=== PATIENT | female | born 1945 | race Caucasian/White ===

== ENCOUNTER → 2019-01-18 | Outpatient (CLI) | payer OTHER | LOC: FIMAGING 09:37 | PROVIDERS: ATTEND Family Medicine | DX: Z13.820 Encounter for screening for osteoporosis (principal); Z85.89 Personal history of malignant neoplasm of other organs and systems; Z78.0 Asymptomatic menopausal state; Z85.3 Personal history of malignant neoplasm of breast ==

== ENCOUNTER 2019-02-23 12:09 | Inpatient (IN) | payer OTHER ==
[2019-02-23] MEDS ORDERED: NS 500 ML IV ONE (12:43)
[2019-02-23] MEDS ORDERED: ONDANSETRON 4 MG/2 ML VIAL IVP ONE (12:43)
--- NOTE | 2019-02-23 12:51 | EDPHY ---
H & P Time Seen by Provider: 02/23/19 12:31 HPI/ROS: HPI Constipation. 73-year-old female by private vehicle. This patient reports that she has been dealing with constipation for the last 5 weeks. She describes this is infrequent bowel movements every 3-4 days, small in nature and only weaned induced with medications such as senna and docusate sodium or fiber supplements. She reports that she just returned from an 8 a trip to [place] where she visited her grand some for his high school graduation. She had issues with constipation accompanied by mid and upper abdominal cramping and bloating. She was seen at an urgent care in the [facility] area. She was given magnesium citrate had a bowel movement after taking this and felt better. She comes into the emergency department today stating that she is concerned about her ongoing constipation. She again had cramping and bloating involving the mid and upper abdomen this morning. She did take a fiber supplement last night at 6:00 p.m. And again at 5:30 a.m. This morning. She produced a soft bowel movement this morning but states that it was small and is concerned that it was not that substantial. She does have a follow-up appointment with gastroenterology for this problem which was arranged through her primary care physician scheduled for March 13. She has not been vomiting. Her last meal was last night on the plane ride home. She did have some coffee this morning. She is asking to be evaluated and worked up in the emergency department. She is concerned about a possible obstructive process. ROS: Constitutional: No fever, no chills. No weakness. Eyes: No discharge. No changes in vision. ENT: No sore throat. No nasal congestion or rhinorrhea. Respiratory: No cough. No shortness of breath. Cardiac: No chest pain, no palpitations. Gastrointestinal: As above, no vomiting, no diarrhea. Genitourinary: No hematuria. No dysuria or increased frequency with urination. Musculoskeletal: No back pain. No neck pain. No myalgias or arthralgias. Skin: No rashes. Neurological: No headache. No focal weakness or altered sensation. Past medical history: Breast cancer with bilateral mastectomy. Cancer free since 2008. Social history: She is currently here by herself. No alcohol. Nonsmoker. Physical Exam: General Appearance: Alert, she is not in distress but is mildly anxious. This patient is responding to questions appropriately and in full sentences. This patient appears well-hydrated and well-nourished. Eyes: Pupils equal and round no pallor or injection. No lid edema, erythema or injection. Respiratory: There are no retractions, lungs are clear to auscultation with good air movement bilaterally. Cardiovascular: Regular rate and rhythm. No murmur. Gastrointestinal: Abdomen is soft with mild and vague tenderness on palpation of the upper and mid abdomen, no masses, bowel sounds normal. No focal tenderness at McBurney's point. No Mosquera sign. Neurological: Motor sensory function is grossly intact. Cranial nerves are normal. Gait is normal. Skin: Warm and dry, no rashes. Musculoskeletal: Neck is supple and nontender. No CVA tenderness bilaterally. Extremities are symmetrical. All joints range without pain or impingement. Psychiatric: No agitation. No depression. Database: EKG: EKG time is 2:12 p.m.; EKG shows a narrow complex normal sinus rhythm with a ventricular rate of 72. The DC, QRS, QT intervals are within normal limits. Borderline ST elevation noted in the anterior leads. Left axis deviation noted. No evidence of right heart strain. This EKG was compared to a prior EKG from March of 2015 which showed similar tall borderline peaked T-waves and borderline ST elevation in the anterior leads. Interpreted by me. Imaging: CT abdomen and pelvis with IV contrast: Significant for a 3.5 cm pancreatic mass indicative of pancreatic malignancy. There is associated atrophy of the pancreatic tail and some edema noted. There is thrombosis of the splenic vein. Constipation noted. No metastasis seen. Results were discussed with staff radiologist Dr. Juan Luis Ray. Procedures: Emergency department course: Triage vital signs reviewed. She is mildly hypertensive. Vital signs are otherwise within normal limits. She is afebrile. IV will be placed. She will be started on IV normal saline with 500 cc to be given over the next hour. Blood work will be obtained. CT abdomen and pelvis with IV contrast will be obtained as well pending a normal creatinine. The patient endorses workup. 2:05 p.m., the patient was re-evaluated, she was sleeping comfortably but easily arousable. We are still awaiting the results of her CT scan. I discussed the results of her blood work and her urinalysis which are reassuring. She then described to me that she has had some intermittent lower chest discomfort in concert with her upper abdominal cramping. She reports that this has been ongoing for a number of weeks with her abdominal discomfort as described above in her HPI. An EKG and a troponin will be checked. She denies any chest pain or shortness of breath at this time. 2:15 p.m., discussed CT results and diagnosis with the patient and her who is now at the bedside. This was then followed up by a call in discussion with on-call general surgeon Dr. Kory Delcid. He viewed the CT scan from [facility]. At this time he feels there is nothing emergent and that her workup would not be enhanced by admission to the hospital. He recommended that we start the patient on Lovenox for the splenic vein thrombosis and he will see the patient in his office on Wednesday for re-evaluation , arrangement of an endoscopic ultrasound-guided biopsy by interventional radiologist Dr. Andrews followed by consultation with Oncology. Oncology, Dr. Carolina moss. The patient's troponin was elevated. I spoke with Dr. Dr. Elliott, hospitalist on-call at 2:50 p.m.. The case was discussed in detail with him. He accepts this patient for transfer and admission to the PCU. He will arrange for cardiology consultation, oncology consultation and endoscopic biopsy by Dr. Andrews. I also explained to Dr. Elliott that I had briefed Dr. Kory Delcid regarding this patient's condition. 3:20 p.m., the patient was given 60 mg of subcutaneous Lovenox as well as 324 mg of chewed aspirin. Results of her emergency department workup, my conversations with general surgery and hospitalist as well as her preliminary care plan was discussed in detail with her and her . All of their questions were answered. I discussed transport by ambulance. She does not want to do this. She and her are requesting to go by private vehicle. In my professional opinion she and her understand the risks of being transported by private vehicle. They again declined ambulance transport. I have filled out the appropriate transfer paperwork. Her vital signs have remained stable throughout her emergency department course. She has not had any chest pain. She was transferred by private vehicle with her in stable condition. Differential Diagnosis: The differential diagnosis on this patient includes but is not limited to constipation, ileus, partial bowel obstruction, biliary colic, elevated troponin. Appendicitis, volvulus unlikely. This represents a partial list of diagnoses considered. These considerations are based on history, physical exam , past history, reassessment and diagnostic testing. Smoking Status: Former smoker Constitutional: Initial Vital Signs Temperature (C) 36.6 C 02/23/19 12:36 Heart Rate 98 02/23/19 12:36 Respiratory Rate 16 02/23/19 12:36 Blood Pressure 156/96 H 02/23/19 12:36 O2 Sat (%) 95 02/23/19 12:36 O2 Delivery Mode Room Air Allergies/Adverse Reactions: docetaxel [From Taxotere] Allergy (Verified 02/23/19 12:36) Sulfa (Sulfonamide Antibiotics) Allergy (Verified 02/23/19 12:36) Home Medications: Medication Instructions Recorded Atorvastatin Calcium [Lipitor] 10 mg PO DAILY 04/01/15 Medical Decision Making - Diagnostics Imaging Results: Imaging Impressions Abdomen CT 02/23/19 13:13 Impression: 1. 3.1 cm pancreatic mass consistent with malignancy, with occlusion of the splenic vein peripheral to the mass, with continuity of the mass with the splenic artery. 2. Stranding adjacent to the mass suggesting regional extension, with no definite evidence of distant metastases. 3. Constipation. 4. Congenital anomaly of the celiac artery, with discrete origin of the hepatic artery, as above. 5. Degenerative change in the spine, with grade 1 anterolisthesis of L3 on L4 and severe spinal canal narrowing at L3-L4. 6. Additional findings, as above. Findings discussed with Ev Arredondo M.D., on February 23, 2019 at 1414. - Data Points Laboratory Results: 02/23/19 02/23/19 14:13 12:55 POC Sodium 146 mEq/L H mEq/L (135-145) POC Potassium 4.9 mEq/L mEq/L (3.3-5.0) POC Chloride 105.0 mEq/L mEq/L (97-110) POC Total CO2 28 mEq/L mEq/L (22-31) POC BUN 12 mg/dL mg/dL (7-23) POC Creatinine 0.9 mg/dL mg/dL (0.6-1.0) POC Glucose 102 mg/dL H mg/dL (70-100) POC Calcium 10.1 mg/dL mg/dL (8.5-10.4) POC Total Bilirubin 1.0 mg/dL mg/dL (0.1-1.4) POC AST 37 IU/L IU/L (14-46) POC ALT 27 IU/L IU/L (9-52) POC Alk Phosphatase 48 IU/L IU/L (38-126) POC Troponin I 0.26 ng/mL H ng/mL (0.00-0.08) POC Total Protein 7.0 g/dL g/dL (6.3-8.2) POC Albumin 4.2 g/dL g/dL (3.5-5.0) Medications Given: Discontinued Medications Enoxaparin Sodium (Lovenox) 60 mg SC EDNOW ONE Stop: 02/23/19 14:52 Last Admin: 02/23/19 15:11 Dose: 60 mg Sodium Chloride (Ns) 500 mls @ 0 mls/hr IV EDNOW ONE; Wide Open PRN Reason: Protocol Stop: 02/23/19 12:44 Last Admin: 02/23/19 12:51 Dose: 500 mls Ondansetron HCl (Zofran) 4 mg IVP EDNOW ONE Stop: 02/23/19 12:44 Last Admin: 02/23/19 12:51 Dose: 4 mg Point of Care Test Results: CBC CBC Collection Date 02/23/19 CBC Collection Time 12:50 WBC 4.90 RBC 5.00 HGB 14.9 HCT 44.3 PLT 259 Neut # 3.06 Neut 62.5 LYMPH # 1.09 LYMPH 22.2 MCV 88.6 Chemistry 02/23/19 02/23/19 14:13 12:55 POC Sodium 146 mEq/L H mEq/L (135-145) POC Potassium 4.9 mEq/L mEq/L (3.3-5.0) POC Chloride 105.0 mEq/L mEq/L (97-110) POC Total CO2 28 mEq/L mEq/L (22-31) POC BUN 12 mg/dL mg/dL (7-23) POC Creatinine 0.9 mg/dL mg/dL (0.6-1.0) POC Glucose 102 mg/dL H mg/dL (70-100) POC Calcium 10.1 mg/dL mg/dL (8.5-10.4) POC Total Bilirubin 1.0 mg/dL mg/dL (0.1-1.4) POC AST 37 IU/L IU/L (14-46) POC ALT 27 IU/L IU/L (9-52) POC Alk Phosphatase 48 IU/L IU/L (38-126) POC Troponin I 0.26 ng/mL H ng/mL (0.00-0.08) POC Total Protein 7.0 g/dL g/dL (6.3-8.2) POC Albumin 4.2 g/dL g/dL (3.5-5.0) Urine Dip Collection Date 02/23/19 Collection Time 13:40 Specific [place] (1.002-1.030) 1.010 PH (5.0-7.5) 7.5 Leukocytes (Negative) Negative Nitrites (Negative) Negative Protein (Negative) Negative Glucose (Negative) Negative Ketones (Negative) Negative Urobilnogen (0.2-1.0 EU) 0.2 Bilirubin (Negative) Negative Blood (Negative) Negative Departure - Departure Disposition: [facility] Acute Clinical Impression: Pancreatic mass, Elevated troponin
[2019-02-23] MEDS ORDERED: IOPAMIDOL (ISOVUE-300) 100 ML BTL ONE (13:17)
[2019-02-23] MEDS ORDERED: ENOXAPARIN 60 MG/0.6 ML SYR SC ONE (14:51)
[2019-02-23] MEDS ORDERED: ASPIRIN 325 MG TAB PO ONE (15:15)
[2019-02-23] MEDS ORDERED: ACETAMINOPHEN 325 MG TAB PO PRN (17:35)
[2019-02-23] MEDS ORDERED: ZOLPIDEM TARTRATE 5 MG TAB PO PRN (17:35)
[2019-02-23] MEDS ORDERED: ONDANSETRON 4 MG/2 ML VIAL IVP PRN (17:35)
[2019-02-23] MEDS: NITROGLYCERIN 0.4 MG BTL SL PRN ×3 (18:21→19:18)
[2019-02-23 18:51] LABS: CREATINE KINASE 103 IU/L (0-156)
[2019-02-23] MEDS ORDERED: MAGNESIUM HYDROXIDE 30 ML UDCUP PO PRN (18:51)
[2019-02-23] MEDS ORDERED: BISACODYL 10 MG SUPP PR PRN (18:51)
--- NOTE | 2019-02-23 19:09 | PDGENHP ---
History and Physical History and Physical: CC:chest pain and abd pain with constipation HISTORY: This patient comes in with chest pain complaint but has multiple symptoms and findings jodee to each Chest pain - this is a Left low anterior pressure (no associated sxs) that has occured over 6 weeks, gradually getting more severe and persistant. She has trouble recalling timing, but states nearly continuously present for past 8 days though waxes and wanes and her awareness of it varies. Is aggravated by lying down and better standing but is all pressure, no sharp, and no pleuritic component. No sob or cough or fever. ? if worse w eating at times but see gi sx's below. She had an episode of chest pain for 2 hours in 2014 seen at [facility] [place] w one nl troponin, and abnormal ekg w ST segment elevation but no stress test or echo or angio done then. She declined admission so did not have complete eval. She recalls chest pressure but the urg care MD note states pleuritic pain A CT chest in 2015 noted Coronary Atherosclerosis Risk factors: Former smoker Age new line hypercholesterolemia Abdominal pain and constipation - she complains of 2 or more months of significant constipation requiring frequent use of laxatives and fiber. This is a completely new symptom for her. This is associated with some epigastric discomfort which is aggravated by eating. No nausea or vomiting, no weight loss no fevers no melanic stools new line ROS: A comprehensive 10 system review revealed no other significant findings PAST MEDICAL HISTORY: Breast cancer Lung nodule and hilar adenopathy, apparently had lymph node biopsy negative for malignancy (2015) Hyperlipidemia Breast cancer Osteoporosis FAMILY MEDICAL HISTORY: Breast cancer SOCIAL HISTORY: Former smoker MEDICATIONS: The patients list has been reconciled by our clinical pharmacist in the EMR. I have reviewed the list and ordered appropriate medicines. PHYSICAL EXAMINATION: Vital Signs: Normal without fever Winchman/Crane Operator: Sinus Examination: General: alert, oriented, good mentation, patient looks anxious and uncomfortable and is sitting on the side of bed continually massaging her right lower anterior rib cage Skin: warm, dry, good color, no rash HEENT: normal Neck: no mass or jvd Resps: relaxed Lungs: clear breath sounds Heart: regular, no murmur Abdomen: soft, nondistended, nontender, +BS, no mass Upper Extremities: normal Lower Extremities: no edema, warm No Bleeding or bruising Neurologic: normal speech/language, normal scaffold setter, no focal weakness IV site: looks normal LABORATORY DATA: First troponin 0.26 Unremarkable metabolic panel and CBC Point of care liver enzymes and bilirubin are normal as is albumin RADIOLOGY STUDIES: I reviewed images from a CT scan of her abdomen done at Urgent Care today. There is a 3 cm lesion in the mid pancreas that appears complex with some mild atrophy of the tail of the pancreas but no acute pancreatitis. There is some stranding adjacent to this lesion suggesting possible local extension but no definite metastatic disease is noted. There is occlusion of the splenic vein distal to the pancreatic lesion, suggesting splenic vein DVT there. There is significant constipation with stool throughout the colon with some distension but no sign of obstruction. 12 LEAD EKG: Draft reviewed 12 lead EKG which is sinus rhythm with some anterior ST elevation and very tall anterior T-waves which appear little change from her EKG in 2015. ASSESSMENT: * Chest pain with elevated troponin and abnormal EKG with ST elevations, some features quite concerning for acute coronary syndrome but with 6 weeks of ongoing and often continuous pain there is an atypical part of the picture * Absence of arrhythmia or heart failure * Known coronary disease on a CT scan in 2015 with risk factors of former smoking and hyperlipidemia on statin * Upper abdominal discomfort and constipation, cause of constipation uncertain. Has had colonoscopy but she can't recall timing and I do not have records to tell me the timing, ? Of relation to pancreatic lesion and splenic vein thrombus * Newly identified pancreatic mass suspicious for malignancy, no jaundice and so far no radiologic evidence of metastases.. 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 * History of breast cancer status post chemotherapy * Previous lung nodule associated with adenopathy, no malignancy in biopsy of lymph node; this was 2014 with apparently no repeat chest imaging since then PLANS: * I have ordered a stat repeat troponin and CPK to trying clarify troponin origin * I have ordered a stat repeat EKG * I have ordered stat sublingual nitroglycerin * On review of her current status I believe that she should probably be considered for going to the color laboratory technician emergently though again she has had ongoing pain continuously for quite a long time and it is unclear if the EKG changes are new or not. I I have placed a call to Cardiology waiting for them to call me back. If we can't get her pain quite a down or if there are any other instabilities she will definitely need to get angiography tonight, but it may be the right thing to do to go now either way. * We can treat her constipation and abdominal pain right now with laxatives * For her pancreatic mass She should be assessed by Dr. Andrews to see if endoscopic ultrasound would be appropriate at this time. * Will check a chest x-ray to reassess her lung nodule from 2015 * At some point she may need a colonoscopy due to constipation But I need to know when her last 1 was but looks like probably 2011 I have reviewed the patient's case in detail with Dr. Horace Espinal and Ev Arredondo I have reviewed the patient's past medical records as part of this assessment, including outpatient clinic records
[2019-02-23] MEDS ORDERED: fentaNYL 100 MCG/2 ML INJ ONE (20:59)
[2019-02-23] MEDS ORDERED: MIDAZOLAM 2 MG/2 ML VIAL ONE (20:59)
[2019-02-23] MEDS ORDERED: IOPAMIDOL (ISOVUE 370) 100 ML BTL IV ONE (21:00)
[2019-02-23] MEDS ORDERED: LIDOCAINE 1% 5 ML SDV ONE (21:00)
[2019-02-23 21:06] LABS: PLATELET COUNT 263 10^3/uL (150-400)
[2019-02-23 21:13] LABS: INR 1.02 (0.83-1.16)
--- NOTE | 2019-02-23 22:09 | PDPROPOC ---
Sedation Plan of Care Sedation Plan of Care: mental status noted, patient educated of risks, benefits , alternatives, patient can tolerate sedation ASA Classification: ASA 2 Planned drugs: fentanyl, midazolam Mallampati Score: Class 2 Mallampati Reference Image: Patient passed 3-3-2 rule?: Yes
[2019-02-23] MEDS ORDERED: ATROPINE SULFATE 1 MG/10 ML SYR IVP PRN (22:10)
[2019-02-23] MEDS: PRESERVISION AREDS2 FORMULA EYE VIT 1 EACH PO SCH (22:47)
[2019-02-23] MEDS: FAMOTIDINE 20 MG TAB PO SCH (22:47)
[2019-02-23] MEDS: MELATONIN 3 MG TAB PO SCH (22:47)
[2019-02-23] MEDS: HEPARIN 5,000 UNIT/0.5 ML INJ SC SCH (22:47)
[2019-02-23] MEDS: SENNOSIDES/DOCUSATE SODIUM TAB PO SCH (22:47)
[2019-02-23] MEDS: ATORVASTATIN CALCIUM 20 MG TAB PO SCH (22:47)
--- NOTE | 2019-02-23 23:00 | GCON ---
[f rep st] CONSULTATION CARDIOLOGY CONSULTATION DATE OF CONSULTATION: 02/23/2019 REFERRING PHYSICIAN: Dale Elliott MD REASON FOR CONSULTATION: Chest pain. HISTORY OF PRESENT ILLNESS: The patient is a pleasant 73-year-old female with a past medical history of hyperlipidemia; bilateral breast cancer, status post mastectomies and subsequent chemotherapy; an d history of lung nodule and hilar adenopathy in 2015 with lymph node biopsy in 2015 that was negativ e for malignancy. The patient was in her usual state of health until approximately 1 month ago when she began to develop left-sided substernal chest pain as well as left upper quadrant abdominal discom fort. Her pain would radiate to her back as well as across her chest. She described the pain as up to an 8/10. Episodes were not related to exertion. She does admit to associated shortness of breath when the pain is present, but no associated shortness of breath in the absence of symptoms. She sta binu that over the last 1 month, these symptoms have become progressively worse with greater intensity , duration and frequency. Her pain progressed to the point today that it was no longer manageable an d she presented to [facility] ER. She also does note recent onset of constipation that has become gradually more troublesome over the l ast several days. She denies any complaints of fevers, chills, sweats, nausea, or vomiting. She has no complaints of l oss of appetite or weight loss. She denies complaints of palpitations, dizziness, lightheadedness, n ear syncope or syncope. No complaints of PND, orthopnea, or lower extremity edema. PAST MEDICAL HISTORY: Again notable for breast cancer, status post bilateral mastectomy and subseque nt chemotherapy and hyperlipidemia. MEDICATIONS ON ADMISSION: Include atorvastatin 20 mg daily, PreserVision soft gels p.o. b.i.d., and multivitamin daily. ALLERGIES: Include docetaxel chemotherapy as well as sulfa. SOCIAL HISTORY: She is . She lives with her . She recently moved to [place] in 2009 to live closer to her children and grandchildren. She is a former smoker. She smoked from approxima tely 20 to approximately 45 years of age. She does not drink significant quantities of alcohol. No illicit drug use. FAMILY HISTORY: No family history of premature coronary artery disease. PHYSICAL EXAMINATION: VITAL SIGNS: Blood pressure 102/66, heart rate 99, respiratory rate of 14, ox ygen saturation 93% on room air, temperature 36.6. GENERAL APPEARANCE: She is awake, alert, oriente d, and appropriate. When I entered the room, she was lying on her right side writhing in discomfort. She described chest pain as 8/10 at the time of my exam. Her symptoms settled down during the cour se of my examination, but remained present through the course of the exam. NECK: There was no evide nce of JVP or carotid bruits. LUNGS: Clear to auscultation bilaterally. CARDIAC: S1 and S2, regul ar rate and rhythm. No murmurs, rubs, or gallops. ABDOMEN: Soft. Mild tenderness to palpation in the left upper quadrant. EXTREMITIES: She does have 2+ right femoral pulse. No evidence of cyanosi s, clubbing or edema. Distal pulses are intact. LABORATORY DATA: Sodium 146, potassium 4.9, chloride 105, bicarb 28, BUN 12, creatinine 0.9, glucose 102, total bilirubin 1, AST 37, ALT 27, alkaline phosphatase 48, albumin 4.2, total protein 7. Poin t of care troponin 0.26. Serum troponin approximately 4 hours later was 0.20. ECG from 1737 this evening demonstrates normal sinus rhythm, heart rate of 76, left axis deviation, S T elevation in leads V3 through V5, consistent with early repolarization, narrow QRS duration of 75 m sec. QRS morphology is similar to previous ECG in 2015. IMAGING DATA: CT abdomen demonstrated a 3.1 cm pancreatic mass consistent with malignancy with occlu susan of the splenic vein peripheral to the mass with continuity of the mass with the splenic artery. There was stranding adjacent to the mass suggestive of regional extension with no definite evidence of distant metastasis. IMPRESSION: 1. Chest pain. 2. Symptoms consistent with unstable angina. 3. Elevated troponin. 4. Evidence of 3.[address] mass on CT of the abdomen. PLAN: The patient is a pleasant 73-year-old female with ongoing chest pain that has become progressi vely worse over the last several days, which began at least a month ago. Troponin is mildly elevated . Risk factors for coronary artery disease include hyperlipidemia and smoking history with ongoing p ain with stable heart rate and blood pressure. Plan for left heart catheterization this evening. Ri sks and benefits have been discussed in detail. The patient is agreeable to pursue. The patient will go directly to the catheterization laboratory this evening. I have discussed plan o f care with her primary care provider, Dr. Elliott. I have also spoken with her on the phone, who is driving into [facility] from [place]. /[id number]/MODL
--- NOTE | 2019-02-23 23:11 | CPIP ---
[f rep st] INVASIVE CARDIAC PROCEDURE DATE OF PROCEDURE: 02/23/2019 PROCEDURE PERFORMED: Diagnostic left heart catheterization. INDICATION FOR PROCEDURE: Ongoing 8/10 chest pain despite well-controlled blood pressure and heart r ate with mildly elevated troponin of 0.20. DESCRIPTION OF PROCEDURE: After informed consent was obtained, the patient was brought to the [facility] catheterization laboratory where she was prepped and draped in sterile fashion. Using 1% lidocaine , the right groin was anesthetized. Using the micropuncture and modified Seldinger technique, a 6-Fr ench catheter was placed in the right common femoral artery without complications. A JL4 catheter wa s used to take images of the left coronary anatomy in multiple projections. The JL4 catheter was exc hanged over a guidewire for a JR4 catheter. The JR4 catheter was used to take images of the right co ronary anatomy in multiple projections. The JR4 catheter was exchanged over a guidewire for an angle d pigtail catheter. The angled pigtail catheter was used to cross the aortic valve. Left ventriculo gram was performed. LVEDP was assessed. Aortic valve gradient was assessed on pull-back. The angle d pigtail catheter was removed over a guidewire. Right common femoral artery angiography was obtaine d demonstrating appropriate placement of the 6-Monegasque catheter above the bifurcation and below the in guinal ligament over the femoral head. FINDINGS: 1. Left main: Normal size and caliber bifurcates into left anterior descending and left circumflex coronary arteries. There is no evidence of coronary disease within the left main. 2. Left anterior descending is a large-caliber vessel that reaches the LV apex. There is no evidenc e of coronary disease within the left anterior descending artery. There is a large prominent 1st julia gonal branch. There are some mild luminal irregularities in the proximal segment of the first diagon al branch. 3. The circumflex is a small diminutive vessel, nondominant. There is no evidence of coronary disea se within the circumflex or a small first obtuse marginal branch. 4. The right coronary artery is a large-caliber dominant vessel that bifurcates into a PDA and PLV. There is no evidence of coronary artery disease. HEMODYNAMICS: LVEF 65%. LVEDP 9 mmHg. Aortic valve gradient: None. CONCLUSION: 1. Mild nonobstructive coronary artery disease in first diagonal branch. 2. Left main, left anterior descending, left circumflex and right coronary artery are free of musa ry artery disease. 3. Normal left ventricular function with left ventricular ejection fraction of 65%. 4. Normal hemodynamics with left ventricular end-diastolic pressure of 9 mmHg and no aortic valve gr adient. PLAN: 1. Right common femoral artery angiography demonstrates appropriate placement of 6-Monegasque sheath. A ngio-Seal deployed successfully with no evidence of hematoma. 2. The patient will return to her room on . Results have been communicated with her attending physician, Dr. Dale Elliott. /[id number]/MODL
[2019-02-24 05:20] LABS: PLATELET COUNT 239 10^3/uL (150-400)
[2019-02-24] MEDS: HEPARIN 5,000 UNIT/0.5 ML INJ SC SCH ×3 (05:28→21:21)
[2019-02-24] MEDS: PRESERVISION AREDS2 FORMULA EYE VIT 1 EACH PO SCH ×2 (09:58→21:21)
[2019-02-24] MEDS: SENNOSIDES/DOCUSATE SODIUM TAB PO SCH ×2 (09:58→21:21)
[2019-02-24] MEDS: FAMOTIDINE 20 MG TAB PO SCH ×2 (09:58→21:21)
[2019-02-24] MEDS: MULTIVITAMINS 1 EACH TAB PO SCH (09:58)
[2019-02-24] MEDS: PANTOPRAZOLE SODIUM 40 MG TAB PO SCH (09:58)
[2019-02-24] MEDS: POLYETHYLENE GLYCOL 3350 17 GM PKT PO SCH (09:58)
--- NOTE | 2019-02-24 14:24 | SOAPPROG ---
SHIRA Progress Note Assessment/Plan: Assessment:Plan: see full dictated consult to follow 73 y/o female with new cardiac stent wtih 3.1 cm lesion in body of pancrease EUS and bx today with Dr Andrews if pathology is available If pathology not available it maybe as outpt Danny Dickinson MD 02/24/19 14:23 Objective: Vital Signs Temp Pulse Resp BP Pulse Ox 36.8 C 67 18 107/74 96 02/24/19 12:27 02/24/19 12:27 02/24/19 12:27 02/24/19 12:27 02/24/19 12:27 Laboratory Results 02/24/19 05:02 02/24/19 05:02 02/23/19 02/24/19 02/25/19 05:59 05:59 05:59 Intake Total 600 Balance 600 PT 13.0 SEC (12.0-15.0) 02/23/19 20:50 INR 1.02 (0.83-1.16) 02/23/19 20:50 ICD10 Worksheet Patient Problems: Problems Problem Status Onset Elevated troponin Acute Pancreatic mass Acute
[2019-02-24] MEDS ORDERED: LR 1,000 ML IV ONE (15:45)
--- NOTE | 2019-02-24 15:52 | HOSPPROG ---
Hospitalist Progress Note Assessment/Plan: ASSESSMENT: * Chest pain * With elevated troponin and abnormal EKG with ST elevations, some features quite concerning for acute coronary syndrome * Taken for LHC on 02/23 which revealed no significant CAD * Likely caused by pancreatic mass as below * Pancreatic Mass * Seen on abdominal imaging, concerning for malignancy * GI consulted this AM for EUS guided biopsy, discussed with Dr. 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 * In setting of new pancreatic mass as above * S/p 60 mg Lovenox on admission * Will hold on further therapeutic AC until after biopsy performed * SubQ Heparin ordered for DVT Ppx for now * Constipation * Bowel regimen ordered, last BM yesterday AM * Seen on abdominal CT with no signs of obstruction * At some point she may need a colonoscopy as outpatient, GI consult as above * History of breast cancer status post chemotherapy * Previous lung nodule associated with adenopathy, no malignancy in biopsy of lymph node; this was 2014 with apparently no repeat chest imaging since then FEN: NPO for possible EUS DVT PPx; SubQ Heparin Code: FULL Dispo: Pending clinical course Subjective: Patient reports some epigastric pain this AM Objective: Vital Signs Temp Pulse Resp BP Pulse Ox 36.8 C 64 16 131/86 H 95 02/24/19 15:46 02/24/19 15:46 02/24/19 15:46 02/24/19 15:46 02/24/19 15:46 Laboratory Results 02/24/19 05:02 02/24/19 05:02 02/23/19 02/24/19 02/25/19 05:59 05:59 05:59 Intake Total 600 Balance 600 PT 13.0 SEC (12.0-15.0) 02/23/19 20:50 INR 1.02 (0.83-1.16) 02/23/19 20:50 - Physical Exam Constitutional: no apparent distress Eyes: PERRL Ears, Nose, Mouth, Throat: moist mucous membranes Cardiovascular: regular rate and rhythym Respiratory: no respiratory distress Gastrointestinal: tenderness, No guarding, No rebound, No distension Skin: warm Musculoskeletal: full muscle strength Neurologic: AAOx3 Psychiatric: interacting appropriately ICD10 Worksheet Patient Problems: Problems Problem Status Onset Elevated troponin Acute Pancreatic mass Acute
[2019-02-24] MEDS ORDERED: PROPOFOL/EMULSION 500 MG/50 ML BOTTLE IV ONE (16:17)
[2019-02-24] MEDS ORDERED: LIDOCAINE 2% 2 ML INJ ONE (16:17)
--- NOTE | 2019-02-24 16:18 | GCON ---
[f rep st] CONSULTATION DATE OF CONSULTATION: 02/24/2019 REFERRING PHYSICIAN: Flako Valentino DO INDICATION FOR CONSULTATION: Abnormal pancreatic imaging study with mass. HISTORY OF PRESENT ILLNESS: I have been asked to see the patient in consultation for chief complaint of abnormal imaging with a 3.1 cm lesion in her pancreas. She was admitted to the hospital with car diac chest pain and underwent catheterization with a recent stent placed. Workup included a CT scan which revealed a significant lesion of the body of the pancreas that is likely a malignancy, and we h ave been called to help and evaluate in that regard. She does have epigastric abdominal pain over last number of months, and she has had some constipation as well. Her chest pain and cardiac issue s have been going on for approximately a month as well. PAST MEDICAL HISTORY: History of breast cancer in and 2008, lung nodule, hilar lymphadenopathy, hyperlipidemia, osteoporosis. SURGICAL HISTORY: Mastectomy in 1997 and 2008, lymph node biopsies. MEDICATIONS: At home include: Lipitor, MultiVites, and turmeric. In hospital, she has: Tylenol p.r.n., Lipitor 20 mg p.o. at bedtime, Atropine p.r.n., bisacodyl p.r. n., Pepcid 20 mg twice daily, heparin subcu 5000 units q.8, milk of magnesia, melatonin 3 mg p.o. at bedtime, morphine p.r.n., multivitamins, Nitrostat p.r.n., Zofran p.r.n., Protonix 40 mg daily, Dominik AX 17 mg daily, Senokot 1 tab p.o. b.i.d., Ambien p.r.n. ALLERGIES: Sulfa. SOCIAL HISTORY: She quit tobacco when she was 46. She drinks alcohol occasionally. FAMILY HISTORY: Breast cancer. Father's side had stomach cancer, lung cancer, and throat cancer. REVIEW OF SYSTEMS: A complete review of systems was performed and is negative other than noted in HPI. PHYSICAL EXAM: GENERAL: Well-developed, well-nourished female sitting in her bed in no acute distre ss. VITAL SIGNS: Blood pressure is 107/74. Pulse is 67. Respirations are 18. She is 96% on room air. Temperature is 36.8. EYES: Anicteric. SYLVIA, EOMI. MOUTH: Moist mucous membranes. No lesio ns. NECK: Supple. No JVD. BACK: No spine tenderness. No CVA tenderness. LUNGS: Clear. CARDIA C: S1, S2. Regular rate and rhythm. ABDOMEN: Bowel sounds are normal in pitch and frequency. Abo ut is soft with epigastric tenderness with mild guarding. No rebound. No hepatosplenomegaly. EXTRE MITIES: No cyanosis, clubbing, or edema. NEUROLOGIC: Cranial nerves intact. Nonfocal. Alert and oriented x3. SKIN: No stigmata of advanced liver disease. No rashes. LABORATORY DATA: From today, February 24: WBC 5.85, hemoglobin 13.1, hematocrit 40.2, platelet count 2 39. From yesterday, PT 13.0, INR 1.02, PTT 39.4. From today, sodium 136, potassium 4.2, chloride 10 4, bicarb 22, BUN 13, creatinine 0.8, glucose 84, calcium 9.3. From February 23, 2019, AST 37, ALT 27, al k phos 48, bilirubin 1.0. CT scan from February 23 with IV but no oral contrast shows a 3.1 cm pancreatic mass consistent with mal ignancy with occlusion of the splenic vein peripherally to the mass with a continuing of the mass wit h splenic artery. 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 And then, cardiac catheterization performed February 23, 2019, mild nonobstructive coronary disease in 1st diagonal branch. Left main, left anterior descending, left circumflex, and right coronary artery ar e free of coronary artery disease. Normal left ventricle function with left ventricular ejection fra ction is 55%. Normal hemodynamics with left ventricle end-diastolic pressure of 9 mmHg. No aortic v alve gradient. ASSESSMENT: 1. Chest pain, noncardiac origin with negative catheterization. 2. Abnormal imaging study with pancreatic mass. 3. History of breast cancer. Epigastric pain. RECOMMENDATIONS: 1. If we are able to set this up, proceed with endoscopic ultrasound and fine-needle aspirate of her pancreatic lesion, and if it is not going to be able to be set up today, then it will have to be as an outpatient later. 2. Keep n.p.o. pending attempted setting up endoscopic ultrasound. 3. Further recommendations to follow the results of the above and clinical course. Thank you for allowing me to participate in this patient's healthcare. Do not hesitate to call me if you have any questions. /[id number]/MODL
--- NOTE | 2019-02-24 16:39 | PDANEPAE ---
ANE Past Medical History - Cardiovascular History Hx Hypertension: No Hx Arrhythmias: No Hx Chest Pain: Yes Hx Coronary Artery / Peripheral Vascular Disease: No Hx CHF / Valvular Disease: No Hx Palpitations: No Cardiovascular History Comment: ELEVATED LIPIDS - Pulmonary History Hx COPD: No Hx Asthma/Reactive Airway Disease: No Hx Recent Upper Respiratory Infection: No Hx Oxygen in Use at Home: No Hx Sleep Apnea: No Sleep Apnea Screening Result - Last Documented: Negative Pulmonary History Comment: RECENT DYSPNEA - Neurologic History Hx Cerebrovascular Accident: No Hx Seizures: No Hx Dementia: No - Endocrine History Hx Diabetes: No - Renal History Hx Renal Disorders: Yes Renal History Comment: UTI 03/2015. 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 ROSACEA. OSTEOPOROSIS - Chronic Pain History Chronic Pain: No - Surgical History Prior Surgeries: LT WRIST REMVL GANGLION CYST. MALLIKA MASTECTOMY ANE Review of Systems Review of Systems: ANE Patient History - Allergies Allergies/Adverse Reactions: docetaxel [From Taxotere] Allergy (Verified 02/23/19 17:25) Hypersensitivity Reaction Sulfa (Sulfonamide Antibiotics) Allergy (Verified 02/23/19 17:25) Rash - Home Medications Home Medications: Atorvastatin Calcium [Lipitor 20 mg (*)] 20 mg PO HS 02/23/19 [Last Taken ] C/E/Zn/Cu/OM3/DHA/EPA/LUT/ZEAX [Preservision Areds 2 Softgel] 1 each PO BID [Last Taken 02/22/19] Herbals/Supplements -Info Only 1 ea PO DAILY 02/23/19 [Last Taken 02/22/19] Multivitamins [Multivitamin (*)] 1 each PO DAILY 02/23/19 [Last Taken 02/22/19] - NPO status NPO Since - Liquids (Date): 02/24/19 NPO Since - Liquids (Time): 10:00 NPO Since - Solids (Date): 02/24/19 NPO Since - Solids (Time): 10:00 - Smoking Hx Smoking Status: Former smoker ANE Labs/Vital Signs - Labs Result Diagrams: 02/24/19 05:02 02/24/19 05:02 - Vital Signs Blood Pressure: 131/86 Heart Rate: 64 Respiratory Rate: 16 O2 Sat (%): 95 Height: 152.4 cm Weight: 60 kg ANE Physical Exam - Airway Neck exam: FROM Mallampati Score: Class 2 Mouth exam: normal dental/mouth exam - Pulmonary Pulmonary: no respiratory distress, no rales or rhonchi, clear to auscultation - Cardiovascular Cardiovascular: regular rate and rhythym, no murmur, rub, or gallop - ASA Status ASA Status: III ANE Anesthesia Plan Anesthesia Plan: GA with mask Total IV Anesthesia: Yes
--- NOTE | 2019-02-24 16:40 | POSTANESTH ---
Post Anesthetic Evaluation Cardiovascular Status: Normal, Stable Respiratory Status: Normal, Stable Level of Consciousness/Mental Status: Can Participate in Eval Pain Control: Adequate, Prn Tx Ordered Nausea/Vomiting Control: Adequate, Prn Tx Ordered Complications Possibly Related to Anesthesia: None Noted
[2019-02-24] MEDS ORDERED: MEPERIDINE 25 MG/0.5 ML AMP IVP PRN (17:06)
[2019-02-24] MEDS ORDERED: DEXAMETHASONE 4 MG/ML VIAL IVP PRN (17:06)
[2019-02-24] MEDS ORDERED: NS 500 ML IV PRN (17:06)
[2019-02-24] MEDS ORDERED: PROMETHAZINE HCL 25 MG/ML INJ IVP PRN (17:06)
[2019-02-24] MEDS ORDERED: NALOXONE HCL 0.4 MG/ML INJ IVP PRN (17:06)
[2019-02-24] MEDS ORDERED: fentaNYL 100 MCG/2 ML INJ IVP PRN (17:06)
[2019-02-24] MEDS ORDERED: HYDROmorphONE/DILAUDID 1 MG/ML INJ IVP PRN (17:06)
[2019-02-24] MEDS ORDERED: METOCLOPRAMIDE 10 MG/2 ML VIAL IVP PRN (17:06)
[2019-02-24] MEDS ORDERED: LR 500 ML IV PRN (17:06)
[2019-02-24] MEDS ORDERED: PHENYLEPHRINE HCL 100 MCG/ML SYR IVP PRN (17:06)
[2019-02-24] MEDS ORDERED: HYDROCODONE/APAP 5/325 TAB PO PRN (17:06)
[2019-02-24] MEDS ORDERED: ALBUTEROL 3 ML DEYVIAL IH PRN (17:06)
[2019-02-24] MEDS ORDERED: ONDANSETRON 4 MG/2 ML VIAL IVP PRN (17:06)
--- NOTE | 2019-02-24 17:06 | GIREPORT ---
Count Includes [facility] Surgical Services - Endoscopy Department Patient Name: Varsha Parikh Procedure Date: 02/24/2019 1:44 PM Patient Type: Inpatient Attending MD/ ER Physician: Brad Andrews MD Procedure: Upper EUS Indications: Suspected mass in pancreas on CT scan, Epigastric abdominal pain, Weigh t loss Patient Profile: 73 year old female presents for evaluation of abnormal imaging. Providers: Brad Andrews MD Medicines: Monitored Anesthesia Care Complications: No immediate complications. Estimated blood loss: Minimal. Description of Procedure: After obtaining informed consent, the endoscope was passed under direct vision. Throughout the procedure, the patient's blood pressure, pulse, and oxygen saturations were monitored continuously. The Endosonoscope was introduced through the mouth, and advanced to the second part of duoden um. The was introduced through the mouth, and advanced to the second part o f duodenum. The upper EUS was accomplished without difficulty. The esopha natividad, stomach, and duodneum were visualized endosonographically. The patient tolerated the procedure well. Findings: ENDOSCOPIC FINDING: : White nummular lesions were noted in the middle third of the esophagus. Biopsies were taken with a cold forceps for histology. Joann? Varices were found in the gastric fundus. A small hiatal hernia was present. Patchy mildly erythematous mucosa was found in the entire examined stom ach. Biopsies were taken with a cold forceps for histology. The examined duodenum was normal. ENDOSONOGRAPHIC FINDING: : Pancreatic parenchymal abnormalities were noted in the pancreatic head. These consisted of lobularity. The pancreatic duct was dilated downstre am in the body and tail and measured about 3mm. The pancreas was mildly atrop hic. An irregular mass was identified in the pancreatic body. The mass was hypoechoic. The mass measured 29 mm by 23 mm in maximal cross-sectional diameter. The endosonographic borders were poorly-defined. There was sonographic evidence suggesting invasion into the superior mesenteric a rtery (manifested by abutment). Fine needle aspiration for cytology was perfo rmed. Color Doppler imaging was utilized prior to needle puncture to confirm a lack of significant vascular structures within the needle path. Two pas ses were made with the 25 gauge needle using a transgastric approach. A sty let was used. A non licensed nuclear plant operator was present and performed a preliminary cytologi c examination. The cellularity of the specimen was adequate. There was no sign of significant endosonographic abnormality in the visualized portion of the liver. No masses were identified. There was no sign of significant endosonographic abnormality in the com mon bile duct. No lymphadenopathy seen. Estimated Blood Loss: Estimated blood loss was minimal. Post Op Diagnosis: - White nummular lesions in esophageal mucosa. Biopsied. Joann? - Small hiatal hernia. - Erythematous mucosa in the stomach. Biopsied. - Normal examined duodenum. - A mass was identified in the pancreatic body. Fine needle aspiration performed. - There was no evidence of significant pathology in the visualized port ion of the liver. - There was no sign of significant pathology in the common bile duct. - Malignant. Preliminary report is adequate cellularity. Suspect pancre atic adenocarcinoma with abutment of splenic artery. Due to varices suspect splenic vein involvement but not seen on EUS. Recommendation: - Discharge patient to home (with escort). - Await cytology results and await path results. - Clear liquid diet. - Continue present medications. - Oncology follow up as outpatient? - Thank you for allowing me to participate in the care of your patient. Attending Participation: I personally performed the entire procedure. Brad Andrews MD Brad Andrews MD 02/24/2019 5:05:58 PM This report has been signed electronicallyBrad Andrews MD Number of Addenda: 0 Note Initiated On: 02/24/2019 1:44 PM [email or web address]
--- NOTE | 2019-02-24 19:17 | PDMN ---
Medical Necessity Medical necessity: Change to IP, as of 02/24/19, per MD & [facility] Medical Oncology; los >2 mn ongoing management of pancreatic mass concerning for malignancy w/chest pain s/p cardiac cath & splenic vein thrombosis; requiring further monitoring & GI consult w/EUS guided biopsy
[2019-02-24] MEDS: MELATONIN 3 MG TAB PO SCH (21:21)
[2019-02-24] MEDS: ATORVASTATIN CALCIUM 20 MG TAB PO SCH (21:21)
[2019-02-25] MEDS: HEPARIN 5,000 UNIT/0.5 ML INJ SC SCH (06:15)
[2019-02-25] MEDS: SENNOSIDES/DOCUSATE SODIUM TAB PO SCH (08:23)
[2019-02-25] MEDS: FAMOTIDINE 20 MG TAB PO SCH (08:23)
[2019-02-25] MEDS: PRESERVISION AREDS2 FORMULA EYE VIT 1 EACH PO SCH (08:23)
[2019-02-25] MEDS: PANTOPRAZOLE SODIUM 40 MG TAB PO SCH (08:23)
[2019-02-25] MEDS: MULTIVITAMINS 1 EACH TAB PO SCH (08:23)
[2019-02-25] MEDS: POLYETHYLENE GLYCOL 3350 17 GM PKT PO SCH (08:23)
[2019-02-25] MEDS ORDERED: MAG HYDROX/AL HYDROX/SIMETH 30 ML UDCUP PO PRN (10:19)
[2019-02-25] MEDS ORDERED: MAGNESIUM CITRATE 300 ML BOTTLE PO PRN (10:20)
[2019-02-25 11:47] VITALS: BP 127/79
--- NOTE | 2019-02-25 12:40 | PDDCSUM ---
Discharge Summary Discharge Summary: Date of Admission: 02/23/2019 Date of Discharge: 02/25/2019 Consults: Cardiology, GI, Oncology Procedures: LHC, EUS w/ Biopsy, Abd CT Followup: Oncology Hospital Course Problem List: * Pancreatic Mass * Seen on abdominal imaging, concerning for malignancy * GI consulted for EUS guided biopsy, performed on 02/24 with prelim path showing likely pancreatic adenocarcinoma * Consulted GI, Dr. 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 * In setting of new pancreatic mass as above * S/p 60 mg Lovenox on admission * Held on further therapeutic AC until after biopsy performed on 02/24 * Discussed with oncology who recommend Xarelto upon discharge for ongoing AC, will f/u with Oncology as OP for further management Constipation * Bowel regimen ordered, has had BM since admission * Seen on abdominal CT with no signs of obstruction * Recommended Senna/Colace BID, Miralax qd, Mag Citrate PRN for ongoing constipation Chest pain * With elevated troponin and abnormal EKG with ST elevations, some features quite concerning for acute coronary syndrome * Taken for LHC on 02/23 which revealed no significant CAD * Likely caused by pancreatic mass as below * History of breast cancer status post chemotherapy * Previous lung nodule associated with adenopathy, no malignancy in biopsy of lymph node; this was 2014 with apparently no repeat chest imaging since then Time spent on discharge was >35 minutes with >50% of time spent on patient education and counseling.
--- NOTE | 2019-02-25 13:30 | ASMTCMCOM ---
CM Note CM Note Notes: Patient admitted via ED with c/o constipation and abdominal fullness, recent travel to [place]. Per CT may have malignant process. CM to follow for needs. THIS NOTE WAS WRITTEN BY GINNY APODACA CM. SIGNED OFF BY SHYLA CONTRERAS RN. Plan: TBD Date Signed: 02/25/2019 01:30 PM Electronically Signed By:Shyla [email or web address]
--- NOTE | 2019-02-25 13:30 | ASMTLACE ---
LACE Length of stay for Answers: 2 days current admission Acuity / Level of Answers: Yes Care: Did the patient have an inpatient admission? Comorbidities - select Answers: Any tumor (including all that apply lymphoma or leukemia) # of Emergency department Answers: 1-2 visits in the last 6 months Score: 8 Date Signed: 02/25/2019 01:29 PM Electronically Signed By:Shyla Deras
--- NOTE | 2019-02-25 13:35 | ASDISCHSUM ---
Discharge Information Plan Status:Home with No Needs Medically Cleared to Leave: Discharge Date: CM D/C Disposition: ADT D/C Disposition: Projected Discharge Date: Transportation at D/C: Discharge Delay Reason: Follow-Up Date: Discharge Slot: Final Diagnosis: Placement Information Patient Contact Information Contact Name:PERLA Relationship: Address:[address] Work Phone: City:[place] Phone: State/Zip Code:[place] [address] Email: Financial Information Financial Class:Medicare Primary Plan Desc:MEDICARE INPATIENT Primary Plan Number:[id number] Secondary Plan Desc:[employer] MDR SUPPLEMENT Secondary Plan Number:[id number] Assessment Information LACE LACE Length of stay for Answers: 2 days current admission Acuity / Level of Answers: Yes Care: Did the patient have an inpatient admission? Comorbidities - select Answers: Any tumor (including all that apply lymphoma or leukemia) # of Emergency department Answers: 1-2 visits in the last 6 months Score: 8 Date Signed: 02/25/2019 01:29 PM Electronically Signed By:Elana Deras [facility] CM Progress Note CM Note CM Note Notes: Patient admitted via ED with c/o constipation and abdominal fullness, recent travel to [place]. Per CT may have malignant process. CM to follow for needs. THIS NOTE WAS WRITTEN BY GINNY APODACA CM. SIGNED OFF BY ELANA LI RN. Plan: TBD Date Signed: 02/25/2019 01:30 PM Electronically Signed By:Elana Deras Case Management Discharge Plan Note Case Management Discharge Discharge Order Complete? Answers: Yes Followup Appointment 02/28/2019 12:00 AM Patient to Obtain Answers: Independently Medications Transportation Arranged Answers: Family/Friends Family Notified Answers: Yes Notes: Discharge Comments Notes: Pt was admitted through ED on 02/23/19 for chest pains. She has been found to have pancreatic cancer. She is being discharged independent to home today with her Shakir She has a follow-up appt for a PET scan on 02/28/19. From there she will decide whether or not to start chemo. will take her home. She is independent in her ADLs. No CM needs identified. Date Signed: 02/25/2019 01:34 PM Electronically Signed By:Elana Deras Intervention Information Intervention Type:*Incorrect Registration Date of Service:02/24/2019 07:06 PM Patient Type:Inpatient Staff Member:GIULIANO Blum Courtney Hours: Discipline: Severity: Comment:
--- NOTE | 2019-02-25 14:41 | GCON ---
[f rep st] CONSULTATION ONCOLOGY CONSULTATION REFERRING PHYSICIAN: Flako Valentino DO SURGEON: Dr. Matteo Kramer. REASON FOR CONSULTATION: Pancreatic mass. HISTORY OF PRESENT ILLNESS: The patient is a 73-year-old woman who has been having some difficulty with abdominal discomfort and constipation. Some of the discomfort seemed to be more in her mid chest when she presented to the emergency room. Enzymes were slightly abnormal, so she had a cardiac evaluation , but that evaluation was unremarkable. During the evaluation for the pain, she had a CT of her abdomen that showed a 3.1 cm lesion in her pancreas. She has had this biopsied, and preliminarily, it looks suspicious for pancreatic cancer. The final path is still pending. She reports she has had a 15-pound weight loss but denies any night sweats. She has had a lot of problems with constipation which finally cleared with magnesium citrate. She notes some discomfort after eating but not sure if it is related to any specific foods. She is getting ready to go home and has no acute complaints at this time. ALLERGIES: She is allergic to sulfa and docetaxel. HOME MEDICATIONS: Multivitamins, herbs, PreserVision, atorvastatin. PAST MEDICAL HISTORY: 1. Left breast cancer in 1997 with a positive lymph node. She underwent a mastectomy followed by adjuvant chemo containing doxorubicin. She may have been on tamoxifen for about 4 years but stopped due to uterine mass, but that was benign. 2. Right breast cancer diagnosed 2008, also with a positive lymph node, treated with a Taxotere-based regimen. She had a severe reaction to TAXOTERE, and she finished chemotherapy with another drug, probably Abraxane. Both breast cancers were treated in [facility]. 3. Benign chest lymphadenopathy. 4. Dyslipidemia. 5. Osteoporosis. SURGICAL HISTORY: 1. Left mastectomy in 1997. 2. Right mastectomy 2008. 3. Lymph node biopsies by Dr. Kramer. 4. She had a cardiac catheterization which was unremarkable. FAMILY HISTORY: No history of malignancy in 1st-degree relatives. She has 2 children. SOCIAL HISTORY: She smoked for about 20 years but quit at age 46. She drinks alcohol occasionally. No intravenous drug use. She is to Shakir x 54 years. REVIEW OF SYSTEMS: 10-point review of systems performed. Pertinent positives as per HPI, otherwise negative. PHYSICAL EXAM: Temperature is 36.7, pulse 102, blood pressure is 127/79. In general, she is a woman of appropriate age, in no distress. HEENT is unremarkable. Sclerae are nonicteric. Lungs are clear. Cardiac is regular without murmur. Abdomen is soft, nontender. No palpable mass or hepatosplenomegaly. Mala exam reveals no peripheral lymphadenopathy, and she is nontender over her spine. Neurological is grossly intact. 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 There was stranding adjacent to the mass but no definite evidence of distant metastases. She has a congenital anomaly of the celiac artery. There is no overt lymphadenopathy. There is a small lesion in her liver that appears to be a cyst. LABS: CBC is normal. Her chemistries are unremarkable. IMPRESSION: 1. Suspicious 3.1 cm pancreatic mass. 2. 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 3. History of breast cancer. PLAN: She looks like she has a locally advanced pancreatic cancer that is potentially surgically resectable. I briefly spoke to Dr. Kasper, who is on- call for surgery, and stated that even in patients where the tumor is not invading the splenic artery and vein, she often recommends splenectomy because difficulty in the vessels. If she does not have signs of metastatic disease, there still may be a 20% to 30% chance of cure. This would be with a combination of chemotherapy and surgery. Whether or not to go on a blood thinner is unclear, but it may be worth a trial to see if it alleviates some of her discomfort. I spoke to her and have recommended the following to the patient: 1. Outpatient PET-CT scan to complete staging. 2. Neoadjuvant chemotherapy. 3. If she has at least stable or responsive disease, then consider surgical resection. We will discuss therapy options after the PET. The most active regimen is FOLFIRINOX which has been shown to be better than gemcitabine plus capecitabine. However, it can be challenging to tolerate. Another option would be to consider gemcitabine plus Abraxane. Will make the final decision after reviewing the PET scan and how she is feeling once she gets home. /[id number]/MODL MTDD
[2019-02-25] MEDS ORDERED: RIVAROXABAN 20 MG TAB PO SCH (18:00)
--- NOTE | 2019-02-26 23:41 | CPEKG ---
Test Reason : OPEN Blood Pressure : / mmHG Vent. Rate : 072 BPM Atrial Rate : 071 BPM P-R Int : 179 ms QRS Dur : 075 ms QT Int : 382 ms P-R-T Axes : 048 -38 078 degrees QTc Int : 419 ms Sinus rhythm Left axis deviation Abnormal R-wave progression, early transition Borderline ST elevation, anterior leads Confirmed by Ev Arredondo ([id number]) on 02/26/2019 11:41:13 PM Referred By: Ev Arredondo Confirmed By:Ev Arredondo
== END 2019-02-25 15:40 | disposition home or self-care (01) | DRG 436 ==
LOC: CED 12:09 → INTOOBSV 14:52 → F2W 15:58 → OBSVTOIN 02-24 18:20
PROVIDERS: ADMIT Internal Medicine; ATTEND Internal Medicine
PROC: B2151ZZ Fluoroscopy of Left Heart using Low Osmolar Contrast (ICD-10-PCS; 2019-02-23)
PROC: B2111ZZ Fluoroscopy of Multiple Coronary Arteries using Low Osmolar Contrast (ICD-10-PCS; 2019-02-23)
PROC: 4A023N7 Measurement of Cardiac Sampling and Pressure, Left Heart, Percutaneous Approach (ICD-10-PCS; 2019-02-23)
PROC: 0DB68ZX Excision of Stomach, Via Natural or Artificial Opening Endoscopic, Diagnostic (ICD-10-PCS; principal; 2019-02-24 16:30)
PROC: 0FBG8ZX Excision of Pancreas, Via Natural or Artificial Opening Endoscopic, Diagnostic (ICD-10-PCS; principal; 2019-02-24 16:30)
PROC: 0DB28ZX Excision of Middle Esophagus, Via Natural or Artificial Opening Endoscopic, Diagnostic (ICD-10-PCS; principal; 2019-02-24 16:30)
DX: C25.9 Malignant neoplasm of pancreas, unspecified (principal); I82.890 Acute embolism and thrombosis of other specified veins; I24.9 Acute ischemic heart disease, unspecified; B37.81 Candidal esophagitis; E86.9 Volume depletion, unspecified; K59.00 Constipation, unspecified; E78.5 Hyperlipidemia, unspecified; M81.0 Age-related osteoporosis without current pathological fracture; I25.10 Atherosclerotic heart disease of native coronary artery without angina pectoris; K44.9 Diaphragmatic hernia without obstruction or gangrene; K29.50 Unspecified chronic gastritis without bleeding; Z85.3 Personal history of malignant neoplasm of breast; Z90.13 Acquired absence of bilateral breasts and nipples; Z80.3 Family history of malignant neoplasm of breast; Z80.0 Family history of malignant neoplasm of digestive organs; Z80.1 Family history of malignant neoplasm of trachea, bronchus and lung
CPT/HCPCS: 74177-PO; 80053-ER; 84484-ER; 85025-QW-ER; 96361-ER; 96372-ER; 96374-ER; 99285-ER; C1760; G0378; J1644; J1650; J2250; J2405; J2704; J3010; Q9967

== ENCOUNTER 2019-03-24 08:20 | Day surgery (SDC) | payer OTHER | END 2019-03-24 13:02 | disposition home or self-care (01) | LOC: FSGY 08:20 ==